=== PATIENT | male | born 1955 | race Caucasian/White ===

== ENCOUNTER 2018-05-21 12:55 | Observation (INO) ==
[2018-05-21] MEDS ORDERED: MAGNESIUM SULF RIDER 2 GM in PREMIX 1 EACH IV PRN (13:58)
[2018-05-21] MEDS ORDERED: ONDANSETRON 4 MG/2 ML VIAL IV PRN (13:58)
[2018-05-21] MEDS ORDERED: MORPHINE 4 MG/1 ML VIAL IV PRN (13:58)
[2018-05-21] MEDS ORDERED: ZALEPLON 5 MG CAPSULE PO PRN (13:58)
[2018-05-21] MEDS ORDERED: MAGNESIUM SULF RIDER 4 GM in PREMIX 1 EACH IV PRN (13:58)
[2018-05-21] MEDS ORDERED: POTASSIUM CHLORIDE 20 MEQ TABLET PO PRN (13:58)
[2018-05-21] MEDS ORDERED: NITROGLYCERIN SL 0.4 MG TABLET SL PRN (13:58)
[2018-05-21] MEDS ORDERED: ACETAMINOPHEN 325 MG TABLET PO PRN (14:48)
[2018-05-21] MEDS ORDERED: diphenhydrAMINE CAP 25 MG CAPSULE PO PRN (14:48)
[2018-05-21] MEDS ORDERED: BISACODYL 5 MG TABLET PO PRN (14:48)
[2018-05-21 14:57] LABS: Basophils % 0.4 % (0.0-0.8); Eosinophils # 0.2 10*3/uL (0.0-0.87); Eosinophils % 1.7 % (0.00-10.9); Hematocrit 43.2 VOL% (42.0-52.0); Hemoglobin 14.5 GM/DL (14.0-18.0); Immature Granulocytes % 0.6 %; Immature Granulocytes Absolute 0.05 #; Lymphocytes # 1.9 10*3/uL (1.4-4.0); Lymphocytes % 20.7 % (21.2-54.2); Mean Corpuscular HGB Conc 33.6 GM/DL (32-36); Mean Corpuscular Hemoglobin 34 PG (27-34); Mean Corpuscular Volume 99.8 FL (87-102); Mean Platelet Volume 10.9 FL (9.6-12.0); Monocytes # 0.8 10*3/uL (0.11-0.8); Monocytes % 9.1 % (1.7-12.7); Neutrophils % 67.5 % (38.7-73.9); Platelet Count 201 T/CUMM (130-400); Red Blood Count 4.33 MC/CUMM (3.8-5.5); Red Cell Distribution Width 12.3 % (9.3-17.3); White Blood Count 8.9 T/CUMM (4-12)
[2018-05-21] MEDS: ENOXAPARIN 80 MG/0.8 ML SYRINGE SUBCUT SCH (15:00)
[2018-05-21 15:09] LABS: Calcium 8.6 MG/DL (8.5-10.1); Osmolality,Calculated 277.4 MOS/KG (273-304); Potassium 3.6 MMOL/L (3.5-5.1)
[2018-05-21] MEDS: SODIUM CHLORIDE 0.45% 1,000 ML IV SCH (16:20)
[2018-05-21] MEDS ORDERED: NITROGLYCERIN 2% OINT 1 INCH/GM PACK TOP SCH (18:00)
[2018-05-21] MEDS ORDERED: METOPROLOL TARTRATE 25 MG TABLET PO SCH (21:00)
[2018-05-22] MEDS: ENOXAPARIN 80 MG/0.8 ML SYRINGE SUBCUT SCH (02:33)
[2018-05-22] MEDS: SODIUM CHLORIDE 0.45% 1,000 ML IV SCH ×2 (02:33→06:02)
[2018-05-22 04:08] LABS: Basophils % 0.5 % (0.0-0.8); Eosinophils # 0.2 10*3/uL (0.0-0.87); Eosinophils % 2.5 % (0.00-10.9); Hematocrit 42.5 VOL% (42.0-52.0); Hemoglobin 14.1 GM/DL (14.0-18.0); Immature Granulocytes % 0.8 %; Immature Granulocytes Absolute 0.06 #; Lymphocytes # 1.9 10*3/uL (1.4-4.0); Lymphocytes % 25.1 % (21.2-54.2); Mean Corpuscular HGB Conc 33.2 GM/DL (32-36); Mean Corpuscular Hemoglobin 33 PG (27-34); Mean Corpuscular Volume 99.8 FL (87-102); Mean Platelet Volume 10.2 FL (9.6-12.0); Monocytes # 0.8 10*3/uL (0.11-0.8); Monocytes % 9.9 % (1.7-12.7); Neutrophils # 4.6 10*3/uL (1.4-7.4); Neutrophils % 61.2 % (38.7-73.9); Platelet Count 169 T/CUMM (130-400); Red Blood Count 4.26 MC/CUMM (3.8-5.5); Red Cell Distribution Width 12.3 % (9.3-17.3); White Blood Count 7.6 T/CUMM (4-12)
[2018-05-22 05:10] LABS: Calcium 8.4 MG/DL (8.5-10.1); Osmolality,Calculated 275.7 MOS/KG (273-304); Potassium 3.7 MMOL/L (3.5-5.1); Risk Ratio 2.45; VLDL CHOLESTEROL 23.4 MG/DL
[2018-05-22] MEDS ORDERED: MULTIVITAMIN (CENTRUM) TABLET PO SCH (09:00)
[2018-05-22] MEDS ORDERED: ASPIRIN EC 81 MG TABLET PO SCH (09:00)
[2018-05-22] MEDS ORDERED: QUINAPRIL 20 MG TABLET PO SCH (09:00)
[2018-05-22] MEDS ORDERED: ATORVASTATIN 10 MG TABLET PO SCH (09:00)
[2018-05-22] MEDS ORDERED: PANTOPRAZOLE 40 MG TABLET PO SCH (09:00)
[2018-05-22 11:40] VITALS: BP 154/73
== END 2018-05-22 11:10 | disposition home or self-care (01) ==
LOC: EDUNIT# → EDBD → N.ED 12:55 → N.EDINP 12:55 → N.TELEN 16:04
PROVIDERS: ADMIT Internal Medicine Cardiovascular Disease; ATTEND Internal Medicine Cardiovascular Disease